=== PATIENT | male | born 1965 | race Caucasian/White ===

== ENCOUNTER 2021-11-18 22:36 | Emergency (ER) | payer SELFPAY ==
[~2021-11-18] VITALS: Ht 177.8 cm; Wt 68.0 kg
[2021-11-19] VITALS (9 sets, daily range): BP systolic 120–147; BP diastolic 72–103
[2021-11-19 01:30] LABS: HEMOGLOBIN 16.2 g/dl (14.0-18.0); IMMATURE GRANULOCYTES 0.6 % (0.0-5.0); MEAN CELL VOLUME 89.1 fL CALC (80.0-100.0); MEAN CORPUSCULAR HGB 30.1 pG CALC (26.0-32.0); MEAN CORPUSCULAR HGB CONC 33.8 g/dL CAL (32.0-36.0); NEUT# 6.47 thou/uL (1.82-7.42); RED BLOOD COUNT 5.39 mill/uL (4.70-6.10); RED CELL DISTRI WIDTH 12.9 % (11.5-15.5)
[2021-11-19 01:51] LABS: ALBUMIN 4.7 g/dL (3.2-5.0); ALKALINE PHOSPHATASE 80 u/l (38-126); ANION GAP 16 (6-22 (CALC)); BILIRUBIN, TOTAL 1.2 mg/dL (0.0-1.4); BUN 17 mg/dL (9-20); BUN/CREATININE RATIO 29 (12-20 (CALC)); CARBON DIOXIDE 21 mmol/l (22-30); CHLORIDE 106 mmol/l (95-108); CREATININE 0.6 mg/dL (0.7-1.3); GFR > 60 ML/MIN (>=60 (CALC)); GFR FOR AFR.AMER. > 60 ML/MIN (>=60 (CALC)); POTASSIUM 3.9 mmol/l (3.5-5.1); SGOT/AST 34 u/l (17-59); SODIUM 139 mmol/l (137-146); TOTAL PROTEIN 9.3 g/dL (6.3-8.2)
[2021-11-19] MEDS ORDERED: LORTAB 1010 MG PO (03:51)
[2021-11-19] MEDS ORDERED: CYCLOBENZAPRINE10 MG PO (03:51)
== END 2021-11-19 04:11 | disposition home or self-care (01) | DRG 552 ==
LOC: ED 22:36
PROVIDERS: Emergency Medicine
DX: M47.814 Spondylosis without myelopathy or radiculopathy, thoracic region (principal); F17.210 Nicotine dependence, cigarettes, uncomplicated
CPT/HCPCS: Q9967